=== PATIENT | female | born 1980 | race Caucasian/White ===

== ENCOUNTER 2023-11-03 14:09 | Outpatient (CLI) | payer BC | END 2023-11-03 14:10 | disposition home or self-care (01) | LOC: BICMAMMO 14:09 | PROVIDERS: ATTEND Nurse Practitioner Family | DX: Z12.31 Encounter for screening mammogram for malignant neoplasm of breast (principal); N63.11 Unspecified lump in the right breast, upper outer quadrant; Z80.3 Family history of malignant neoplasm of breast; Z98.890 Other specified postprocedural states | CPT/HCPCS: 77063; 77067 ==

== ENCOUNTER 2023-11-09 14:46 | Outpatient (CLI) | payer BC | END 2023-11-09 14:47 | disposition home or self-care (01) | LOC: BICMAMMO 14:46 | PROVIDERS: ATTEND Nurse Practitioner Family | DX: N63.11 Unspecified lump in the right breast, upper outer quadrant (principal) | CPT/HCPCS: G0279 ==